=== PATIENT | male | born 2000 | race Caucasian/White ===

== ENCOUNTER 2021-09-25 17:57 | Emergency (ER) | payer BC, OTHER ==
[2021-09-25] MEDS ORDERED: Ondansetron PF 4 MG/2 ML Vial ONE (19:40)
[2021-09-25 20:05] LABS: #Lymphocytes 1.1 thou/uL (1.20-3.40); #Monocytes 0.5 thou/uL (0.11-0.59); #Neutrophils 9.6 thou/uL (1.40-6.50); %Basophils 0.2 % (0.0-1.0); %Eosinophils 0.2 % (0.0-10.0); %Lymphocytes 9.9 % (21.0-51.0); %Monocytes 4.5 % (0.0-10.0); %Neutrophils 85.1 % (42.0-75.0); Hemoglobin 17.4 g/dL (14.0-18.0); Mean Corpuscular HGB CONC 34.3 g/dL (32.0-36.0); Mean Corpuscular Hemoglobin 32.4 pg (27.0-31.0); Mean Corpuscular Volume 94.2 fL (78.0-98.0); Mean Platelet Volume 7.4 fL (7.4-10.4); Platelet Count 301 thou/uL (130-400); RBC Distribution Width 11.7 % (11.5-14.5); Red Blood Cell (RBC) Count 5.37 mill/uL (4.70-6.10); White Blood Cell (WBC) Count 11.3 thou/uL (4.8-10.8)
[2021-09-25 20:25] LABS: ALT (SGPT) 49 U/L (8-55); AST (SGOT) 34 U/L (5-34); Albumin 6.2 g/dL (3.5-5.0); Alkaline Phosphatase 97 U/L (40-110); Anion Gap 23 mmol/L (10-20); BUN (Urea Nitrogen) 23 mg/dL (8.9-20.6); Bilirubin, Total 0.9 mg/dL (0.2-1.2); CK (CPK) 283 U/L (30-200); Calc. Creatinine Clearance 0 mL/min (70-130); Calcium 10.9 mg/dL (7.8-10.44); Carbon Dioxide 22 mmol/L (22-29); Chloride 97 mmol/L (98-107); Globulin 3.7 g/dL (2.4-3.5); Glucose 129 mg/dL (70-105); Lipase 22 U/L (8-78); Potassium 4.8 mmol/L (3.5-5.1); Protein, Total 9.9 g/dL (6.0-8.3); Sodium 137 mmol/L (136-145)
== END 2021-09-25 22:04 | disposition home or self-care (01) ==
LOC: ERS 17:57
DX: R11.2 Nausea with vomiting, unspecified (principal); E86.0 Dehydration
CPT/HCPCS: 80053; 82550; 83690; 85025; 93005; 96374; J2405